=== PATIENT | female | born 1960 | race Caucasian/White ===

== ENCOUNTER 2023-02-14 05:21 | Day surgery (SDC) | payer OTHER ==
[2023-02-14 09:18] VITALS: BMI 35.2
[2023-02-14 11:40] VITALS: TEMP 98.7
[2023-02-14 14:44] VITALS: BP 103/56; PULSE 64; RESP 18
== END 2023-02-14 11:00 | disposition home or self-care (01) ==
LOC: JASU-ENDO 05:21
PROVIDERS: ATTEND Internal Medicine Gastroenterology
PROC: 0DBL8ZX Excision of Transverse Colon, Via Natural or Artificial Opening Endoscopic, Diagnostic (ICD-10-PCS; principal; 2023-02-14 09:30)
DX: Z12.11 Encounter for screening for malignant neoplasm of colon (principal); D12.3 Benign neoplasm of transverse colon; K64.8 Other hemorrhoids; K63.89 Other specified diseases of intestine
CPT/HCPCS: 88305-TC